=== PATIENT | female | born 1930 | race Caucasian/White ===

== ENCOUNTER → 2017-09-21 | Outpatient (CLI) | payer MEDICARE | END | disposition home or self-care (01) | LOC: RAD 13:14 | DX: R05 Cough (principal); R09.89 Other specified symptoms and signs involving the circulatory and respiratory systems | CPT/HCPCS: 71046 ==

== ENCOUNTER 2018-01-09 11:01 | Emergency (ER) | payer MEDICARE ==
[2018-01-09] MEDS: ACETAMINOPHEN 500 MG TABLET PO (12:40)
[2018-01-09] MEDS: BUPIVACAINE 0.5% 50 ML VIAL. INJ (12:41)
[2018-01-09 12:59] LABS: BACTERIA,URINE 0 /HPF (0-FEW); BILIRUBIN,URINE NEGATIVE (NEG); CLARITY,URINE CLEAR; COLOR,URINE YELLOW; GLUCOSE,URINE NEGATIVE (NEG); NITRITE,URINE NEGATIVE (NEG); PROTEIN,URINE NEGATIVE (NEG-TRACE); RBC,URINE 0 /HPF (0-2); SQUAMOUS EPITHELIAL CELL,UR FEW /LPF; UROBILINOGEN,URINE 0.2 mg/dL (0.2 mg/dL); WBC,URINE 0 /HPF (0-4)
== END 2018-01-09 15:03 | disposition home or self-care (01) ==
LOC: ER 11:01
DX: S63.250A Unspecified dislocation of right index finger, initial encounter (principal); S80.02XA Contusion of left knee, initial encounter; S00.83XA Contusion of other part of head, initial encounter; I11.9 Hypertensive heart disease without heart failure; E03.9 Hypothyroidism, unspecified; I25.2 Old myocardial infarction; I25.10 Atherosclerotic heart disease of native coronary artery without angina pectoris; Z90.49 Acquired absence of other specified parts of digestive tract; Z90.710 Acquired absence of both cervix and uterus; Z88.8 Allergy status to other drugs, medicaments and biological substances; Z88.2 Allergy status to sulfonamides; W01.0XXA Fall on same level from slipping, tripping and stumbling without subsequent striking against object, initial encounter; Y93.89 Activity, other specified; Y99.8 Other external cause status; Y92.89 Other specified places as the place of occurrence of the external cause
CPT/HCPCS: 29125; 64450; 70450; 70486; 72125; 73130; 73562; 81001; 99285-25; J3490

== ENCOUNTER 2018-01-10 11:21 | Emergency (ER) | payer MEDICARE ==
[2018-01-10] MEDS: LIDOCAINE WITH 8.4% SOD BICARB 3 ML DISP.SYRIN. INJ (12:52)
== END 2018-01-10 13:50 | disposition home or self-care (01) ==
LOC: ER 11:21
DX: S63.250A Unspecified dislocation of right index finger, initial encounter (principal); X58.XXXA Exposure to other specified factors, initial encounter; Y93.89 Activity, other specified; Y99.8 Other external cause status; Y92.89 Other specified places as the place of occurrence of the external cause
CPT/HCPCS: 29125; 96372; 99283

== ENCOUNTER → 2020-03-07 | Outpatient (CLI) | payer MEDICARE ==
[2018-01-10 11:40] VITALS: BP 168/62
[~2020-03-07] MED LIST: AMLO5TAB10 PO; AMOX500C PO; ASPI-482 PO; ATOR10TA PO; ATOR10TA60 PO; CARV12.511 PO; CARV6.2511 PO; CEPH500T PO; HYDR-3164 PO; LEVO50TA5 PO; LISI-130 PO; LISI-334 PO; NITR0.4T24 SL
--- NOTE | 2020-03-07 11:13 | RAD ---
EXAM: Head CT without contrast. HISTORY: Altered mental status. TECHNIQUE: Computed tomographic images of the head were obtained without contrast. *One or more of the following individualized dose reduction techniques were utilized for this examination: 1. Automated exposure control. 2. Adjustment of the mA and/or kV according to patient size. 3. Use of iterative reconstruction technique. COMPARISON: 01/09/2018. FINDINGS: There is no acute or subacute extra-axial or intraparenchymal hemorrhage. There is no mass effect or midline shift. There is no hydrocephalus. There are areas of decreased attenuation within the cerebral white matter, nonspecific and likely related to chronic small vessel disease. There is cerebral volume loss. The visualized portions of the orbits, paranasal sinuses and mastoid air cells are unremarkable. No suspicious calvarial lesion is seen. IMPRESSION: 1. No acute intracranial finding. Note is made that MRI is more sensitive for acute infarction. 2. Bilateral cerebral white matter changes, commonly due to chronic small vessel disease. 3. Cerebral volume loss. Electronically signed by: Agnieszka Terry MD (03/07/2020 11:10 AM) [facility]
== END | disposition home or self-care (01) ==
LOC: CT 10:52
PROVIDERS: ATTEND Internal Medicine
DX: I73.9 Peripheral vascular disease, unspecified (principal); I63.9 Cerebral infarction, unspecified; R41.82 Altered mental status, unspecified
CPT/HCPCS: 70450